=== PATIENT | female | born 1960 | race Caucasian/White ===

== ENCOUNTER 2020-09-12 15:45 | Outpatient (CLI) | payer MEDICARE, SELFPAY ==
[2020-09-12 16:44] LABS: Alanine Aminotransferase 20 U/L (14-59); Albumin Level 3.2 g/dL (3.4-5.0); Alkaline Phosphatase 88 U/L (46-116); Anion Gap 13 mmol/L (8-16); Aspartate Amino Transferase 11 U/L (15-37); Bilirubin,Total 0.7 mg/dL (0.00-1.00); Blood Urea Nitrogen 64 mg/dL (7-18); Calcium 9.2 mg/dL (8.5-10.1); Carbon Dioxide 22 mmol/L (21-32); Chloride 107 mmol/L (98-108); Estimated Glomerular Filt Rate 7; Free T4 Free Thyroxine 0.77 ng/dL (0.76-1.46); Glucose 147 mg/dL (70-99); Osmolality Calculated 315 mOsm/kg (285-295); Potassium 4.6 mmol/L (3.5-5.1); Sodium 142 mmol/L (136-145); Thyroid Stimulating Hormone 10.21 uIU/mL (0.36-3.74); Total Protein 6.1 g/dL (6.4-8.2)
== END 2020-09-12 15:46 | disposition home or self-care (01) ==
LOC: CHSLAB 15:49
DX: E03.9 Hypothyroidism, unspecified (principal); E10.22 Type 1 diabetes mellitus with diabetic chronic kidney disease; N18.6 End stage renal disease; Z99.2 Dependence on renal dialysis
CPT/HCPCS: 36415; 80053; 83036; 84439; 84443